=== PATIENT | female | born 1955 | race Hispanic/Latino ===

== ENCOUNTER 2016-03-16 15:39 | Emergency (ER) | payer BC ==
[2016-03-16] MEDS ORDERED: TYLENOL PO ONE (16:00)
[2016-03-16] MEDS ORDERED: CATAPRES PO ONE (16:00)
--- NOTE | 2016-03-16 16:15 | Emergency Department Report ---
ED Lower Extremity HPI - General Chief Complaint: Extremity Injury, Lower Stated Complaint: FALL/LT KNEE/LEG PAIN Time Seen by Provider: 03/16/16 15:58 Source: patient Mode of arrival: Wheelchair Limitations: No Limitations - History of Present Illness Initial Comments: 60-year-old female past medical history hypertension presents with complaint of left knee pain status post mechanical fall yesterday. She states she exited her car was walking in grassy area and accidentally tripped over a piece of concrete lying on the ground. Patient fell onto her left knee. Has had difficulty ambulating since yesterday due to pain and left knee denies any other trauma, no head injury. Patient states that walking is very difficult due to pain. Denies any paresthesias has full sensation leg. Patient in wheelchair, able to arrange flex and extend her left knee but grimacing due to pain. Denies sustaining any lacerations or abrasions MD Complaint: knee injury Onset/Timin -: days(s) Injury: Leg: Left, Knee: Left Type of Injury: blunt Place: street/outdoors Severity: severe Severity scale (0 -10): 8 Improves With: cold therapy, immobilization Worsens With: weight bearing, movement Context: fall - Related Data Previous Rx's Medication Instructions Recorded Last Taken Type Lisinopril [Zestril TAB] 10 mg PO QDAY #30 tablet 03/16/16 Unknown Rx Naproxen [Naproxen TAB] 250 mg PO BID PRN #20 tablet 03/16/16 Unknown Rx Ondansetron [Zofran Odt] 4 mg PO Q8H PRN #10 tab.rapdis 03/16/16 Unknown Rx traMADol [Ultram 50 MG tab] 50 mg PO Q6HR PRN #12 tablet 03/16/16 Unknown Rx Allergies Allergy/AdvReac Type Severity Reaction Status Date / Time codeine Allergy Swelling Verified 03/16/16 15:50 Penicillins Allergy Swelling Verified 03/16/16 15:50 ED Review of Systems ROS: Stated complaint: FALL/LT KNEE/LEG PAIN Other details as noted in HPI ED Past Medical Hx - Past Medical History Hx Hypertension: Yes - Surgical History Past Surgical History?: No - Social History Smoking Status: Never Smoker Substance Use Type: None - Medications Home Medications: Home Medications Medication Instructions Recorded Confirmed Last Taken Type Lisinopril [Zestril TAB] 10 mg PO QDAY #30 tablet 03/16/16 Unknown Rx Naproxen [Naproxen TAB] 250 mg PO BID PRN #20 tablet 03/16/16 Unknown Rx Ondansetron [Zofran Odt] 4 mg PO Q8H PRN #10 tab.rapdis 03/16/16 Unknown Rx traMADol [Ultram 50 MG tab] 50 mg PO Q6HR PRN #12 tablet 03/16/16 Unknown Rx ED Physical Exam - General Limitations: No Limitations General appearance: alert, in no apparent distress - Head Head exam: Present: atraumatic, normocephalic - Eye Eye exam: Present: normal appearance - ENT ENT exam: Present: mucous membranes moist - Neck Neck exam: Present: normal inspection - Respiratory Respiratory exam: Present: normal lung sounds bilaterally. Absent: respiratory distress - Cardiovascular Cardiovascular Exam: Present: regular rate, normal rhythm. Absent: systolic murmur, diastolic murmur, rubs, gallop - GI/Abdominal GI/Abdominal exam: Present: soft, normal bowel sounds - Extremities Exam Extremities exam: Present: normal inspection - Expanded Lower Extremity Exam Left Hip exam: Present: normal inspection, full ROM Upper Leg exam: Present: normal inspection, full ROM Knee exam: Present: full ROM (injury motion flexion and extension intact but painful with knee extension), tenderness, swelling (tenderness on palpation of left anterior knee) Lower Leg exam: Present: normal inspection, full ROM, tenderness (tenderness at the tibial tuberosity anterior) Ankle exam: Present: normal inspection, full ROM Foot/Toe exam: Present: normal inspection, full ROM Neuro vascular tendon exam: Present: no vascular compromise Gait: Positive: observed and limited by pain, antalgic 1 - Area of pain on palpation no significant swelling or ecchymosis or lacerations no erythema - Back Exam Back exam: Present: normal inspection - Neurological Exam Neurological exam: Present: alert, oriented X3 - Psychiatric Psychiatric exam: Present: normal affect, normal mood - Skin Skin exam: Present: warm, dry, intact, normal color. Absent: rash ED Course Vital Signs 03/16/16 03/16/16 03/16/16 15:42 16:44 16:45 Temperature 98.1 F Pulse Rate 68 68 Respiratory 20 20 Rate Blood Pressure 203/89 203/89 Blood Pressure [Right] O2 Sat by Pulse 100 Oximetry 03/16/16 18:12 Temperature Pulse Rate 59 L Respiratory 18 Rate Blood Pressure Blood Pressure 161/77 [Right] O2 Sat by Pulse 96 Oximetry ED Lower Extremity MDM - Medical Decision Making A/P: Knee sprain, mechanical fall, osteoarthritis, asymptomatic hypertension 1- x-ray shows no fractures, moderate to severe osteoarthritis 2- naproxen and tramadol when necessary for pain. Zofran for nausea 3-will refer patient to primary medical doctor and orthopedics. Patient placed in knee immobilizer with Will wrap for support and knee stability, given a walker for ambulatory reasons. RICE therapy 4-patient does not have any reports whatsoever of blurry vision and headache chest pain nausea vomiting abdominal pain or palpitations. Patient's blood pressure rechecked, now 161/100, we'll restart patient on lisinopril 10 mg. Patient states she was on this medicine but stopped approximately 1 year ago due to noncompliance. I will give patient follow up with primary care area patient does not currently have any symptoms associated with hypertensive emergency. Critical care attestation.: If time is entered above; I have spent that time in minutes in the direct care of this critically ill patient, excluding procedure time. ED Disposition Clinical Impression: Asymptomatic hypertension Knee sprain Qualifiers: Encounter type: initial encounter Involved ligament of knee: unspecified collateral ligament Laterality: left Qualified Code(s): S83.402A - Sprain of unspecified collateral ligament of left knee, initial encounter Fall Qualifiers: Encounter type: initial encounter Qualified Code(s): W19.XXXA - Unspecified fall, initial encounter Disposition: DISCHARGED TO HOME OR SELFCARE Is pt being admited?: No Does the pt Need Aspirin: No Condition: Stable Instructions: Hypertension (ED), Knee Sprain (ED), Knee Immobilizer (ED), Lisinopril (By mouth) Prescriptions: Naproxen [Naproxen TAB] 250 mg PO BID PRN #20 tablet PRN Reason: Pain traMADol [Ultram 50 MG tab] 50 mg PO Q6HR PRN #12 tablet PRN Reason: Pain Lisinopril [Zestril TAB] 10 mg PO QDAY #30 tablet Ondansetron [Zofran Odt] 4 mg PO Q8H PRN #10 tab.rapdis PRN Reason: Nausea Referrals: PRIMARY CARE, [Primary Care Provider] - 3-5 Days LANCE MCINTYRE MD [Staff Physician] - 3-5 Days [facility] [place] [Outside] - 3-5 Days CALEB GAR MD [Staff Physician] - 3-5 Days Forms: Accompanied Note, Work/School Release Form(ED) Time of Disposition: 18:43
[2016-03-16 18:13] VITALS: BP 161/77
--- NOTE | 2016-03-16 18:26 | XRay Report ---
FINAL REPORT PROCEDURE: XR KNEE 4 LT TECHNIQUE: LEFT knee radiographs, AP, lateral, oblique and sunrise views. CPT 68846 HISTORY: knee pain COMPARISON: No prior studies are available for comparison. FINDINGS: No acute fracture or dislocation is seen. There are moderate osteoarthritic changes in all 3 compartments, with joint space narrowing osteophyte formation. IMPRESSION: Moderate tricompartmental osteoarthritic changes. No acute fracture is seen.
--- NOTE | 2016-03-16 18:32 | XRay Report ---
FINAL REPORT EXAM: XR TIBIA FIBULA 2V LT HISTORY: Pain. COMPARISON: Left knee from the same date. FINDINGS: 4 total images of the left tibia and fibula were obtained. No discrete fracture of the tibia or fibula. Degenerative changes of the left knee. IMPRESSION: No acute bony abnormality.
== END 2016-03-16 19:00 | disposition home or self-care (01) ==
LOC: ED 15:39
DX: S83.402A Sprain of unspecified collateral ligament of left knee, initial encounter (principal); I10 Essential (primary) hypertension; W18.30XA Fall on same level, unspecified, initial encounter; Y93.9 Activity, unspecified; Y92.9 Unspecified place or not applicable; Y99.9 Unspecified external cause status

== ENCOUNTER 2021-10-07 12:43 | Emergency (ER) | payer BC, MEDICARE ==
[2021-10-07 13:33] VITALS: BP 200/79
--- NOTE | 2021-10-07 16:50 | XRay Report ---
LEFT SHOULDER 3 VIEWS INDICATION / CLINICAL INFORMATION: Tripped and fell Thursday with left shoulder pain. COMPARISON: None available. FINDINGS: BONES / JOINT(S): There are [id number] degenerative changes involving the acromioclavicular woo nt. There is no evidence of acute fracture or subluxation. SOFT TISSUES: No significant abnormality. ADDITIONAL FINDINGS: The visualized left lung is clear. IMPRESSION: No acute findings. Signer Name: Blu Josue MD Signed: 10/07/2021 4:46 PM Workstation Name: [id number]
--- NOTE | 2021-10-07 16:53 | Cat Scan Report ---
CT head/brain wo con INDICATION / CLINICAL INFORMATION: 65 years Female; pain sp fall. TECHNIQUE: Routine CT head without contrast. All CT scans at this location are performed using CT dos e reduction for ALARA by means of automated exposure control. COMPARISON: None. FINDINGS: BRAIN / INTRACRANIAL CONTENTS: The brain parenchyma appears to demonstrate appropriate attenuation fo r age. The ventricular system is within normal limits in size and configuration. The motion degrades image quality. However, there is no clear CT evidence of acute intracranial hemorrhage or significant mass effect. ORBITS: No significant abnormality of visualized orbits. SINUSES / MASTOIDS: No significant abnormality in the visualized paranasal sinuses or mastoid air ольга ls. CRANIOCERVICAL JUNCTION: No significant abnormality. ADDITIONAL FINDINGS: None. IMPRESSION: 1. There is no CT evidence of acute intracranial process. Signer Name: Naeem Naik MD Signed: 10/07/2021 4:48 PM Workstation Name: [id number]
--- NOTE | 2021-10-07 16:57 | Cat Scan Report ---
CT CERVICAL SPINE WITHOUT CONTRAST INDICATION / CLINICAL INFORMATION: pain sp fall. TECHNIQUE: Axial CT images were obtained through the cervical spine. Sagittal and coronal reformatted images wer e produced. All CT scans at this location are performed using CT dose reduction for ALARA by means of automated exposure control. COMPARISON: None available. FINDINGS: POSTOPERATIVE CHANGE:none ALIGNMENT: Alignment is fairly well-maintained throughout cervical region. There is no indication of traumatic subluxation. VERTEBRAE: No indication of fracture or bone destruction. DISC SPACES: Loss of disc height is evident at the C4-5, C5-6 and C6-7 levels. DEGENERATIVE CHANGES: In addition to loss of disc height and anterior and posterior osteophyte format ion are observed at the C4-5 level. Small anterior osteophytes are observed at C5-6 and C6-7 levels. Uncovertebral arthropathy is a prominent finding at the C4-5, C5-6 and C6-7 levels. This results in s evere foraminal stenosis at the C4-5 level with mild foraminal narrowing at the C5-6 level. CRANIOCERVICAL JUNCTION:No significant abnormality. SPINAL CANAL: Central spinal canal is adequately maintained throughout. PARASPINAL SOFT TISSUES: No significant abnormality. LUNG APICES: No significant abnormality of visualized lungs. IMPRESSION: 1. No indication of fracture or traumatic subluxation 2. Degenerative changes at the C4-5, C5-6 and C6-7 levels. This is most pronounced at the C4-5 level where bilateral neuroforaminal stenosis is evident. Signer Name: Blair Fuller MD Signed: 10/07/2021 4:52 PM Workstation Name: [id number]
--- NOTE | 2021-10-07 17:02 | Emergency Department Report ---
ED Fall HPI - General Chief Complaint: Fall Stated Complaint: FELL AND HIT HEAD AND LEFT ARM Time Seen by Provider: 10/07/21 16:12 Source: patient Mode of arrival: Ambulatory - History of Present Illness Initial Comments: 65 YO COMES TO ER AFTER FALL 3 DAYS PRIOR TO ARRIVAL. SLIPPED ON HER PORCH FELL HITTING HEAD AND R SHOULDER. FAMILY INSISTED SHE BE SEEN TODAY. WITNESSED. NO LOC. NO N/V. RECALLS FALL. WELL APPEARING YOUNGER THAN STATED AGE NAD NEURO INTACT MD Complaint: fall -: Sudden, days(s) Fall Witnessed: yes, by family Place Fall Occurred: home Loss of Consciousness: unsure Prolonged Down Time?: no Symptoms Prior to Fall: none Location: head Severity: mild Context: tripped/slipped Associated Symptoms: denies, headache, neck pain. denies: numbness, weakness, chest paint, shortness of breath, abdominal pain, hematuria, unable to walk, lightheaded, vertigo, confusion - Related Data Previous Rx's Medication Instructions Recorded Last Taken Type Naproxen [Naproxen TAB] 250 mg PO BID PRN #20 tablet 03/16/16 Unknown Rx Ondansetron [Zofran Odt] 4 mg PO Q8H PRN #10 tab.rapdis 03/16/16 Unknown Rx lisinopriL [Zestril TAB] 10 mg PO QDAY #30 tablet 03/16/16 Unknown Rx traMADoL [Ultram 50 MG tab] 50 mg PO Q6HR PRN #12 tablet 03/16/16 Unknown Rx Allergies Allergy/AdvReac Type Severity Reaction Status Date / Time codeine Allergy Swelling Verified 10/07/21 13:33 Penicillins Allergy Swelling Verified 10/07/21 13:33 ED Review of Systems ROS: Stated complaint: FELL AND HIT HEAD AND LEFT ARM Other details as noted in HPI Comment: All other systems reviewed and negative ED Past Medical Hx - Past Medical History Previous Medical History?: Yes Hx Hypertension: Yes - Surgical History Past Surgical History?: No - Family History Family history: no significant - Social History Smoking Status: Never Smoker Substance Use Type: None - Medications Home Medications: Home Medications Medication Instructions Recorded Confirmed Last Taken Type Naproxen [Naproxen TAB] 250 mg PO BID PRN #20 tablet 03/16/16 Unknown Rx Ondansetron [Zofran Odt] 4 mg PO Q8H PRN #10 tab.rapdis 03/16/16 Unknown Rx lisinopriL [Zestril TAB] 10 mg PO QDAY #30 tablet 03/16/16 Unknown Rx traMADoL [Ultram 50 MG tab] 50 mg PO Q6HR PRN #12 tablet 03/16/16 Unknown Rx ED Physical Exam - General Limitations: No Limitations General appearance: alert, in no apparent distress - Head Head exam: Present: atraumatic, normocephalic - Eye Eye exam: Present: normal appearance - ENT ENT exam: Present: mucous membranes moist - Neck Neck exam: Present: normal inspection - Respiratory Respiratory exam: Present: normal lung sounds bilaterally. Absent: respiratory distress - Cardiovascular Cardiovascular Exam: Present: regular rate, normal rhythm. Absent: systolic murmur, diastolic murmur, rubs, gallop - GI/Abdominal GI/Abdominal exam: Present: soft, normal bowel sounds - Extremities Exam Extremities exam: Present: normal inspection - Back Exam Back exam: Present: normal inspection - Neurological Exam Neurological exam: Present: alert, oriented X3 - Psychiatric Psychiatric exam: Present: normal affect, normal mood - Skin Skin exam: Present: warm, dry, intact, normal color. Absent: rash ED Course Vital Signs 10/07/21 13:29 Temperature 97.8 F Pulse Rate 73 Respiratory 20 Rate Blood Pressure 200/79 [Right] O2 Sat by Pulse 97 Oximetry ED Medical Decision Making - Radiology Data Radiology results: report reviewed, image reviewed NAP - Medical Decision Making Vital Signs (72 hours) 10/07/21 13:29 Temperature 97.8 F Pulse Rate 73 Respiratory 20 Rate Blood Pressure 200/79 [Right] O2 Sat by Pulse [address] NOTED SHOULDER XRAY NORMAL NEURO INTACT DC HOME WITH DC PLAN OF CARE INCLUDING DIET - MEDS- ACTIVITY AND FOLLOW UP. SHE VERBALIZES UNDERSTANDING OF PLAN OF CARE. - Differential Diagnosis RO CHI/SHOULDER FX Critical care attestation.: If time is entered above; I have spent that time in minutes in the direct care of this critically ill patient, excluding procedure time. ED Disposition Clinical Impression: Fall, Shoulder contusion, Contusion of head, Asymptomatic hypertension Disposition: HOME / SELF CARE / HOMELESS Is pt being admited?: No Does the pt Need Aspirin: No Condition: Stable Instructions: Hypertension (ED), Facial or Scalp Contusion, [id number] Additional Instructions: MOTRIN OR TYLENOL FOR PAIN MONITOR YOUR BP ALL SCANS/XRAY NOTHING ACUTE TODAY ARTHRITIS WHICH IS CHRONIC IN YOUR NECK Referrals: MARILEE KEYS MD [Staff Physician] - 3-5 Days Forms: Work/School Release Form(ED) Time of Disposition: 17:05
== END 2021-10-07 17:10 | disposition home or self-care (01) ==
LOC: ED 12:43
DX: S40.019A Contusion of unspecified shoulder, initial encounter (principal); S60.229A Contusion of unspecified hand, initial encounter; X58.XXXA Exposure to other specified factors, initial encounter; Y93.89 Activity, other specified; Y92.89 Other specified places as the place of occurrence of the external cause; Y99.8 Other external cause status
CPT/HCPCS: 70450; 72125; 99284